=== PATIENT | male | born 1945 | race Caucasian/White ===

== ENCOUNTER 2017-12-11 08:59 | Emergency (ER) | payer OTHER ==
[~2017-12-11] VITALS: Ht 180.3 cm; Wt 79.0 kg
[2017-12-11 09:01] VITALS: BP 138/66; PULSE 89; RESP 18; TEMP 97.5; O2SAT 96
--- NOTE | 2017-12-11 09:10 | PD ---
HPI Chief Complaint: Complaint Time Seen by Provider: 09:06 Travel History International Travel<30 days: No Contact w/Intl Traveler<30days: No Traveled to known affect area: No History of Present Illness HPI 72-year-old male came to the emergency room with history of urinary retention since last night. Patient seems very uncomfortable and pacing up and down saying that he is in pain. There was another family member with him who said that this has happened to him once before many years ago. Patient does not have a urologist currently. His pain is mostly lower abdomen. Vital signs were stable. No history of hematuria. [facility] Past Medical History Narrative Medical List of his past medical, surgical, social and family history reviewed from the nursing note Cardiovascular Problems: Yes (CHOL) Diabetes: No Social History Tobacco Use: Yes Allergies-Medications (Allergen,Severity, Reaction): Coded Allergies: No Known Allergies (Unverified , 12/11/17) Comments No known drug allergies. Narrative Medication Awaiting for the nurse to do the med reconciliation. Review of Systems Except as stated in HPI: all other systems reviewed are Neg Genitourinary: Positive: Decreased Urinary Output Physical Exam Narrative GENERAL: Awake, alert, anxious, significant distress, pacing SKIN: Focused skin assessment warm/dry. HEAD: Atraumatic. Normocephalic. EYES: Pupils equal and round. No scleral icterus. No injection or drainage. ENT: No nasal bleeding or discharge. Mucous membranes pink and moist. NECK: Trachea midline. No JVD. CARDIOVASCULAR: Regular rate and rhythm. No murmur appreciated. RESPIRATORY: No accessory muscle use. Clear to auscultation. Breath sounds equal bilaterally. GASTROINTESTINAL: Abdomen soft, non-tender, nondistended. Hepatic and splenic margins not palpable. MUSCULOSKELETAL: No obvious deformities. No clubbing. No cyanosis. No edema. NEUROLOGICAL: Awake and alert. No obvious cranial nerve deficits. Motor grossly within normal limits. Normal speech. PSYCHIATRIC: Appropriate mood and affect; insight and judgment normal. Data Data Last Documented VS Vital Signs Date Time Temp Pulse Resp B/P (MAP) Pulse Ox O2 Delivery O2 Flow Rate FiO2 12/11/17 10:15 12/11/17 10:15 98 18 95 Room Air 12/11/17 09:01 97.5 Orders Orders Urinary Catheter Insert/Apply (12/11/17 09:13) Complete Blood Count With Diff (12/11/17 09:13) Basic Metabolic Panel (Bmp) (12/11/17 09:13) Urinalysis - C+S If Indicated (12/11/17 09:13) Ed Discharge Order (12/11/17 09:57) Labs Laboratory Tests Test 12/11/17 09:20 12/11/17 09:30 Urine Collection Type CATH Urine Color YELLOW Urine Turbidity CLEAR Urine pH 6.0 Urine Specific [place] LESS/EQUAL 1.005 Urine Protein NEG mg/dL Urine Glucose (UA) NEG mg/dL Urine Ketones NEG mg/dL Urine Occult Blood NEG Urine Nitrite NEG Urine Bilirubin NEG Urine Urobilinogen 0.2 MG/DL Urine Leukocyte Esterase NEG Urine RBC 0-3 /hpf Urine Squamous Epithelial Cells 0-5 /hpf Microscopic Urinalysis Comment CATH-CULT NOT IND Urine Collection Time 09:20 White Blood Count 9.5 TH/MM3 Red Blood Count 3.78 MIL/MM3 Hemoglobin 12.0 GM/DL Hematocrit 35.4 % Mean Corpuscular Volume 93.9 FL Mean Corpuscular Hemoglobin 31.9 PG Mean Corpuscular Hemoglobin Concent 34.0 % Red Cell Distribution Width 14.0 % Platelet Count 290 TH/MM3 Mean Platelet Volume 6.6 FL Neutrophils (%) (Auto) 58.9 % Lymphocytes (%) (Auto) 31.0 % Monocytes (%) (Auto) 9.2 % Eosinophils (%) (Auto) 0.6 % Basophils (%) (Auto) 0.3 % Neutrophils # (Auto) 5.5 TH/MM3 Lymphocytes # (Auto) 3.0 TH/MM3 Monocytes # (Auto) 0.9 TH/MM3 Eosinophils # (Auto) 0.1 TH/MM3 Basophils # (Auto) 0.0 TH/MM3 CBC Comment DIFF FINAL Differential Comment Blood Urea Nitrogen 9 MG/DL Creatinine 0.85 MG/DL Random Glucose 92 MG/DL Calcium Level 8.9 MG/DL Sodium Level 132 MEQ/L Potassium Level 3.6 MEQ/L Chloride Level 97 MEQ/L Carbon Dioxide Level 25.1 MEQ/L Anion Gap 10 MEQ/L Estimat Glomerular Filtration Rate 89 ML/MIN MDM Medical Decision Making Medical Screen Exam Complete: Yes Emergency Medical Condition: Yes Medical Record Reviewed: Yes Differential Diagnosis Benign hypertrophy of the prostate, urinary retention, obstructive uropathy, acute renal failure Narrative Course 10 AM Hem[place] catheter was introduced. Patient seems much more relaxed at this point. Patient has made approximately 1 L of urine so far. Blood test results are back and renal function is good. Patient has slight hyponatremia. He will be discharged home with leg bag and the catheter. Procedures EKG Prior to Arrival: No Diagnosis Primary Impression: Acute urinary retention Referrals: Vicente Burger MD 2 days Additional Instructions: Called the urologist office was name and number been given to you. Follow the instruction of the nurse regarding the catheter in the leg bag care. Return to the ER if condition worsens or any other new concerns. Med/Other Pt SpecificInfo: No Change to Meds Disposition: 01 DISCHARGE HOME Condition: Stable Adalberto Graves MD Dec 11, 2017 09:10
[2017-12-11 09:35] LABS: AUTOMATED NEUTROPHIL # 5.5 TH/MM3 (1.8-7.7); BASOPHIL % 0.3 % (0.0-2.0); EOSINOPHIL # 0.1 TH/MM3 (0-0.4); EOSINOPHIL % 0.6 % (0.0-4.0); HEMATOCRIT 35.4 % (39.0-51.0); MEAN CELL VOLUME 93.9 FL (80.0-100.0); MEAN CORPUSCULAR HEMOGLOBIN 31.9 PG (27.0-34.0); MEAN PLATELET VOLUME 6.6 FL (7.0-11.0); MONO % 9.2 % (0.0-8.0); MONOCYTE # 0.9 TH/MM3 (0-0.9); NEUT % 58.9 % (16.0-70.0); PLATELET COUNT 290 TH/MM3 (150-450); RED BLOOD COUNT 3.78 MIL/MM3 (4.50-5.90); WHITE BLOOD COUNT 9.5 TH/MM3 (4.0-11.0)
[2017-12-11 09:37] LABS: BILIRUBIN, URINE NEG (NEG); BLOOD, URINE NEG (NEG); GLUCOSE,URINE NEG (NEG); KETONE, URINE NEG (NEG); NITRITE,URINE NEG (NEG); URINE COLOR YELLOW (YELLW/STRAW); URINE LEUKOCYTE ESTERASE NEG (NEG)
[2017-12-11 09:41] LABS: RBC, URINE 0-3 /hpf (0-3); SQUAMOUS EPITHELIAL CELL URINE 0-5 /hpf (0-5)
[2017-12-11 09:50] LABS: CALCIUM 8.9 MG/DL (8.5-10.1)
[2017-12-11 09:51] LABS: BICARBONATE 25.1 MEQ/L (21.0-32.0)
[2017-12-11 09:54] LABS: CREATININE 0.85 MG/DL (0.60-1.30)
[2017-12-11 10:15] VITALS: BP 132/81; PULSE 98; RESP 18; O2SAT 95
== END 2017-12-11 11:05 | disposition home or self-care (01) ==
LOC: PHED 08:59
DX: R33.9 Retention of urine, unspecified (principal); E87.1 Hypo-osmolality and hyponatremia
CPT/HCPCS: 51702; 80048; 81001; 85025